=== PATIENT | female | born 1960 | race African-American/Black ===

== ENCOUNTER 2018-11-30 20:10 | Emergency (ER) | payer MEDICAID, OTHER ==
[~2018-11-30] VITALS: Ht 162.6 cm; Wt 61.0 kg
[~2018-11-30 20:10] MED LIST: ATENOLOL; BENAZEPRIL; LORA1TAB; PRAV20TA; ZIPR80CA2
[2018-11-30] MEDS ORDERED: KETOROLAC 30MG/ML VIAL IV ONE (23:30)
[2018-11-30 23:58] LABS: CLARITY URINE TURBID (CLEAR); COLOR URINE YELLOW (YELLOW); KETONES URINE NEGATIVE (NEGATIVE); LEUKOCYTE ESTERASE URINE TRACE (NEGATIVE); NITRITE URINE NEGATIVE (NEGATIVE); OCCULT BLOOD URINE NEGATIVE (NEGATIVE); PROTEIN URINE NEGATIVE (NEGATIVE); SPECIFIC GRAVITY URINE 1.021 (1.005-1.030)
[2018-12-01 01:20] VITALS: BP 147/86
== END 2018-12-01 02:13 | disposition home or self-care (01) ==
LOC: ER 20:10
DX: M62.830 Muscle spasm of back (principal); G89.29 Other chronic pain; I10 Essential (primary) hypertension
CPT/HCPCS: 81003; 93005; 96374; 99284; J1885

== ENCOUNTER 2020-12-20 16:37 | Emergency (ER) | payer MEDICAID ==
[~2020-12-20] VITALS: Ht 162.6 cm; Wt 68.0 kg
[2020-12-20] MEDS ORDERED: KETOROLAC 30MG/ML VIAL IM ONE (17:30)
[2020-12-20] MEDS ORDERED: IBUP-2028 MT (17:32)
[2020-12-20 17:45] VITALS: BP 115/86
== END 2020-12-20 17:52 | disposition home or self-care (01) ==
LOC: ER 16:37
DX: M25.511 Pain in right shoulder (principal)
CPT/HCPCS: 96372; 99283; J1885

== ENCOUNTER 2021-02-09 04:54 | Emergency (ER) | payer MEDICAID ==
[~2021-02-09] VITALS: Ht 165.1 cm; Wt 59.4 kg
[~2021-02-09 04:54] MED LIST changes: +IBUP-2028 MT
[2021-02-09 06:50] LABS: BASOPHILS % 1.3 % (0.0-2.0); EOSINOPHILS % 0.6 % (0.0-5.0); HEMOGLOBIN. 9.5 g/dL (12.0-16.0); LYMPHOCYTES % 17.4 % (20.0-50.0); MEAN CORPUSCULAR HEMOGLOBIN 24.2 pg (28.0-32.0); MEAN CORPUSCULAR VOLUME 76.2 fL (81.0-99.0); MEAN PLATELET VOLUME 7.5 fl (7.4-10.4); NEUTROPHILS % 70.7 % (40.0-76.0); PLATELET 445 x1000/uL (130-400); RED BLOOD CELL COUNT 3.93 mill/uL (4.2-5.4); RED CELL DISTRIBUTION WIDTH 18.5 % (11.6-14.6)
[2021-02-09 06:55] LABS: CHLORIDE 106 mEq/L (98-107)
[2021-02-09 06:58] LABS: CLARITY URINE CLEAR (CLEAR); COLOR URINE YELLOW (YELLOW); KETONES URINE TRACE (NEGATIVE); LEUKOCYTE ESTERASE URINE TRACE (NEGATIVE); NITRITE URINE NEGATIVE (NEGATIVE); OCCULT BLOOD URINE NEGATIVE (NEGATIVE); PH URINE 6.5 (4.5-8.0); PROTEIN URINE 1+ (NEGATIVE); SPECIFIC GRAVITY URINE 1.021 (1.005-1.030)
[2021-02-09] MEDS ORDERED: KETOROLAC 30MG/ML VIAL IV STA (07:24)
[2021-02-09] MEDS ORDERED: CEFTRIAXONE 1 G PREMIX 50 ML IV ONE (07:30)
[2021-02-09] MEDS ORDERED: SODIUM CHLORIDE 0.9% 1,000 ML IV ONE (07:30)
[2021-02-09] MEDS ORDERED: CIPR-263 MT (09:56)
[2021-02-09] MEDS ORDERED: IBUP-2028 MT (09:56)
[2021-02-09 10:15] VITALS: BP 136/93
== END 2021-02-09 10:19 | disposition home or self-care (01) ==
LOC: ER 04:54
DX: N39.0 Urinary tract infection, site not specified (principal); R30.0 Dysuria; F31.9 Bipolar disorder, unspecified; I10 Essential (primary) hypertension; F17.290 Nicotine dependence, other tobacco product, uncomplicated; Z98.51 Tubal ligation status; Z79.899 Other long term (current) drug therapy
CPT/HCPCS: 36415; 71045; 74176; 80053; 81003; 83690; 85025; 93005; 96365; 96375; 99285; J0696; J1885; J7030

== ENCOUNTER 2021-03-29 18:06 | Emergency (ER) | payer MEDICAID ==
[~2021-03-29] VITALS: Ht 157.5 cm; Wt 63.0 kg
[~2021-03-29 18:06] MED LIST changes: +CIPR-263 MT
[2021-03-29 18:23] VITALS: BP 121/93
== END 2021-03-29 23:00 | disposition left against medical advice (07) ==
LOC: ER 18:06
DX: F41.0 Panic disorder [episodic paroxysmal anxiety] (principal); Z53.21 Procedure and treatment not carried out due to patient leaving prior to being seen by health care provider

== ENCOUNTER 2021-08-28 07:28 | Emergency (ER) | payer MEDICAID ==
[~2021-08-28] VITALS: Ht 160 cm; Wt 57.0 kg
[2021-08-28 07:48] VITALS: BP 132/89
[2021-08-28] MEDS ORDERED: CYCLOBENZAPRINE 10MG TABLET PO ONE (08:15)
[2021-08-28] MEDS ORDERED: ACETAMINOPHEN 325MG TABLET PO ONE (08:15)
[2021-08-28] MEDS ORDERED: CYCL10TA7 MT (09:05)
== END 2021-08-28 09:16 | disposition home or self-care (01) ==
LOC: ER 07:28
DX: M25.511 Pain in right shoulder (principal); I10 Essential (primary) hypertension; Z91.81 History of falling; M19.011 Primary osteoarthritis, right shoulder; M85.811 Other specified disorders of bone density and structure, right shoulder; F31.9 Bipolar disorder, unspecified; Z79.899 Other long term (current) drug therapy
CPT/HCPCS: 73030; 73060; 99284

== ENCOUNTER 2022-03-11 15:09 | Emergency (ER) | payer MEDICAID ==
[~2022-03-11 15:09] MED LIST changes: +CYCL10TA21 MT
== END 2022-03-11 15:52 | disposition left against medical advice (07) ==
LOC: ER 15:09
DX: Z53.21 Procedure and treatment not carried out due to patient leaving prior to being seen by health care provider (principal)

== ENCOUNTER 2022-03-11 17:38 | Emergency (ER) | payer MEDICAID ==
[~2022-03-11] VITALS: Ht 167.6 cm; Wt 62.0 kg
[2022-03-11 17:55] VITALS: BP 148/86
== END 2022-03-12 02:31 | disposition left against medical advice (07) ==
LOC: ER 17:38
DX: Z53.21 Procedure and treatment not carried out due to patient leaving prior to being seen by health care provider (principal)

== ENCOUNTER 2023-02-08 10:00 | Emergency (ER) | payer MEDICAID ==
[~2023-02-08] VITALS: Ht 162.6 cm; Wt 59.1 kg
[2023-02-08 10:11] VITALS: TEMP 98.7; O2SAT 98
[2023-02-08 11:00] VITALS: BP 121/73; PULSE 92; RESP 18
[2023-02-08] MEDS ORDERED: KETOROLAC 30MG/ML VIAL IV STA (11:00)
[2023-02-08 11:20] LABS: BASOPHILS % 0.8 % (0.0-2.0); EOSINOPHILS % 0.6 % (0.0-5.0); HEMATOCRIT. 36.4 % (36.0-48.0); HEMOGLOBIN. 12.1 g/dL (12.0-16.0); MEAN CORPUSCULAR HEMOGLOBIN 27.2 pg (28.0-32.0); MEAN CORPUSCULAR HGB CONC 33.1 g/dL (31.0-37.0); MEAN PLATELET VOLUME 8.3 fl (7.4-10.4); MONOCYTES % 10.7 % (2.0-8.0); NEUTROPHILS % 62.9 % (40.0-76.0); PLATELET 355 x1000/uL (130-400); RED BLOOD CELL COUNT 4.44 mill/uL (4.2-5.4); RED CELL DISTRIBUTION WIDTH 18.8 % (11.6-14.6); WHITE BLOOD COUNT 8.2 x1000/uL (4.5-11.0)
[2023-02-08 11:32] LABS: CHLORIDE 105 mEq/L (98-107); INDEX HEMOLYSI 1 (1-3); INDEX ICTERIC 1 (1-4); INDEX LIPEMIC 1 (1-3); POTASSIUM 3.4 mEq/L (3.5-5.1); SODIUM 135 mEq/L (136-145)
[2023-02-08 11:40] LABS: ALANINE AMINOTRANSFERASE 34 IU/L (13-61); ALBUMIN 4.1 g/dL (3.4-5.0); ASPARTATE AMINOTRANSFERASE 61 IU/L (15-37); BILIRUBIN TOTAL 0.2 mg/dL (0.1-1.0); CALCIUM 9.8 mg/dL (8.5-10.1); CARBON DIOXIDE 29 mEq/L (21-32); CREATININE 0.7 mg/dL (0.6-1.3); GLUCOSE 100 mg/dL (70-105); PROTEIN TOTAL 8.7 g/dL (6.0-8.3); UREA NITROGEN BLOOD 14 mg/dL (7-21)
[2023-02-08] MEDS ORDERED: IOHEXOL-300 100 ML BOTTLE ONE (15:22)
[2023-02-08] MEDS ORDERED: CEPH500C2 MT (16:09)
[2023-02-08] MEDS ORDERED: SULF1TAB48 MT (16:09)
== END 2023-02-08 16:17 | disposition home or self-care (01) ==
LOC: ER 10:00
DX: H00.032 Abscess of right lower eyelid (principal); I10 Essential (primary) hypertension; Z98.51 Tubal ligation status
CPT/HCPCS: 80053; 85025; 36415; 70450; 70487; 96374; 99285; Q9967; J1885; Z7610 ×3

== ENCOUNTER 2023-05-06 08:29 | Inpatient (IN) | payer MEDICAID ==
[~2023-05-06] VITALS: Ht 160 cm; Wt 55.8 kg
[~2023-05-06 08:29] MED LIST changes: +CEPH500C2 MT; +SULF1TAB48 MT
[2023-05-06 10:04] LABS: BASOPHILS % 1.2 % (0.0-2.0); DIFFERENTIAL COMMENT 0; EOSINOPHILS % 1.2 % (0.0-5.0); HEMATOCRIT. 30.6 % (36.0-48.0); HEMOGLOBIN. 9.6 g/dL (12.0-16.0); LYMPHOCYTES % 28.5 % (20.0-50.0); MEAN CORPUSCULAR HGB CONC 31.5 g/dL (31.0-37.0); MEAN CORPUSCULAR VOLUME 79.5 fL (81.0-99.0); MEAN PLATELET VOLUME 7.5 fl (7.4-10.4); MONOCYTES % 10.8 % (2.0-8.0); NEUTROPHILS % 58.3 % (40.0-76.0); PLATELET 385 x1000/uL (130-400); RED BLOOD CELL COUNT 3.85 mill/uL (4.2-5.4); RED CELL DISTRIBUTION WIDTH 21.9 % (11.6-14.6); WHITE BLOOD COUNT 5.4 x1000/uL (4.5-11.0)
[2023-05-06 10:14] LABS: PROTHROMBIN TIME 10.3 sec (9.6-11.0)
[2023-05-06 10:21] LABS: CHLORIDE 107 mEq/L (98-107); INDEX HEMOLYSI 1 (1-3); INDEX ICTERIC 1 (1-4); INDEX LIPEMIC 1 (1-3); POTASSIUM 3.2 mEq/L (3.5-5.1); SODIUM 140 mEq/L (136-145)
[2023-05-06 10:30] LABS: ALANINE AMINOTRANSFERASE 25 IU/L (13-61); ALBUMIN 3.9 g/dL (3.4-5.0); ASPARTATE AMINOTRANSFERASE 50 IU/L (15-37); BILIRUBIN TOTAL 0.2 mg/dL (0.1-1.0); CALCIUM 9.5 mg/dL (8.5-10.1); CARBON DIOXIDE 30 mEq/L (21-32); CREATININE 0.6 mg/dL (0.6-1.3); GLUCOSE 89 mg/dL (70-105); PROTEIN TOTAL 8.1 g/dL (6.0-8.3); UREA NITROGEN BLOOD 11 mg/dL (7-21)
[2023-05-06] MEDS ORDERED: PANTOPRAZOLE SODIUM 40 MG/VIAL IV ONE (12:30)
[2023-05-06] MEDS ORDERED: POTASSIUM-SODIUM PHOSPHATE POWDER PACKET PO NR (13:30)
[2023-05-06] MEDS ORDERED: LORAZEPAM 1MG TABLET PO PRN (18:15)
[2023-05-06] MEDS ORDERED: ATOR40TA70 PO (18:22)
[2023-05-06] MEDS ORDERED: BENA-8 MT (18:22)
[2023-05-06] MEDS ORDERED: AMLO5TAB88 MT (18:22)
[2023-05-06] MEDS ORDERED: LORA-249 PO (18:56)
[2023-05-06] MEDS ORDERED: QUET300T20 PO (18:56)
[2023-05-06] MEDS ORDERED: SERT-422 PO (18:56)
[2023-05-06] MEDS ORDERED: FERR324T17 PO (18:57)
[2023-05-06] MEDS ORDERED: HYDR25TA PO (18:58)
[2023-05-06] MEDS ORDERED: *PATIENT'S OWN MEDICATION STORAGE XX SCH (19:00)
[2023-05-06] MEDS: PANTOPRAZOLE 40MG DR TABLET PO SCH (19:00)
[2023-05-06 19:19] VITALS: BP 120/75; PULSE 85; RESP 20; TEMP 98.4
[2023-05-06 20:00] VITALS: BP 111/68; PULSE 73; RESP 16; TEMP 98.7
[2023-05-06] MEDS ORDERED: AMLODIPINE 5MG TABLET PO SCH (21:00)
[2023-05-06] MEDS ORDERED: ATORVASTATIN CALCIUM 40MG TABLET PO SCH (21:00)
[2023-05-06] MEDS: HYDROCODONE/ACETAMINOPHEN 5/325MG TABLET PO PRN (21:05)
[2023-05-06] MEDS ORDERED: NALOXONE HCL 0.4MG/ML VIAL IV PRN (21:15)
[2023-05-07] VITALS: BP 133/63; PULSE 61; RESP 17; TEMP 97.2
[2023-05-07 04:00] VITALS: BP 128/78; PULSE 81; RESP 18; TEMP 97.7
[2023-05-07] MEDS: HYDROCODONE/ACETAMINOPHEN 5/325MG TABLET PO PRN (04:09)
[2023-05-07 06:45] LABS: HEMATOCRIT 30.8 % (36.0-48.0); HEMOGLOBIN 9.7 g/dL (12.0-16.0); MEAN CORPUSCULAR HEMOGLOBIN 25.3 pg (28.0-32.0); MEAN CORPUSCULAR HGB CONC 31.6 g/dL (31.0-37.0); MEAN CORPUSCULAR VOLUME 80.1 fL (81.0-99.0); PLATELET 380 x1000/uL (130-400); RED BLOOD CELL COUNT 3.84 mill/uL (4.2-5.4); RED CELL DISTRIBUTION WIDTH 21.4 % (11.6-14.6); WHITE BLOOD COUNT 4.9 x1000/uL (4.5-11.0)
[2023-05-07 07:01] LABS: CHLORIDE 108 mEq/L (98-107); INDEX HEMOLYSI 1 (1-3); INDEX ICTERIC 1 (1-4); INDEX LIPEMIC 1 (1-3); POTASSIUM 4.4 mEq/L (3.5-5.1); SODIUM 139 mEq/L (136-145)
[2023-05-07 07:08] LABS: CALCIUM 9.4 mg/dL (8.5-10.1); CARBON DIOXIDE 31 mEq/L (21-32); CREATININE 0.6 mg/dL (0.6-1.3); GLUCOSE 101 mg/dL (70-105); UREA NITROGEN BLOOD 9 mg/dL (7-21)
[2023-05-07 08:00] VITALS: BP 96/64; PULSE 81; RESP 20; TEMP 97.8
[2023-05-07] MEDS: PANTOPRAZOLE 40MG DR TABLET PO SCH (08:29)
[2023-05-07] MEDS ORDERED: BENAZEPRIL 10MG TABLET PO SCH (09:00)
[2023-05-07 10:58] VITALS: BP 96/64; PULSE 81; TEMP 97.8; O2SAT 100
== END 2023-05-07 12:00 | disposition home or self-care (01) | DRG 254 ==
LOC: ER 08:29 → EDBEDREQTM 16:46 → EDBEDREQ 16:46 → 6EST 17:37
PROVIDERS: ADMIT Internal Medicine; ATTEND Internal Medicine
DX: K64.9 Unspecified hemorrhoids (principal); D64.9 Anemia, unspecified; E87.6 Hypokalemia; F31.9 Bipolar disorder, unspecified; I10 Essential (primary) hypertension; F41.9 Anxiety disorder, unspecified; Z98.51 Tubal ligation status; Z79.899 Other long term (current) drug therapy
CPT/HCPCS: 36415; 74176; 80048; 80053; 85025; 85027; 93005; 96374; 99285; C9113